=== PATIENT | female | born 1955 | race Caucasian/White ===

== ENCOUNTER 2021-06-29 10:35 | Outpatient (REF) | payer MEDICARE, SELFPAY ==
--- NOTE | ~2021-06-29 | XR_ITS ---
EXAMINATION: XR HAND, LEFT CLINICAL INFORMATION: Cellulitis of left finger. COMPARISON: None TECHNIQUE: PA, lateral, and oblique views of the left hand. FINDINGS: There is no visible acute fracture or dislocation. There is loss of PIP and DIP joint space first through fifth digits with mild flexion deformities of second, fourth and fifth digits. 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 There is mild flexion deformity DIP joints second, fourth and fifth digits.
== END 2021-06-29 10:36 | disposition home or self-care (01) ==
LOC: HO.HMGCX 10:35
PROVIDERS: Visit Provider Internal Medicine
DX: L03.012 Cellulitis of left finger (principal)
CPT/HCPCS: 73130

== ENCOUNTER 2023-12-12 06:42 | Emergency (ER) | payer MEDICARE, SELFPAY ==
[2023-12-12 06:47] VITALS: BP 202/104; PULSE 84; O2SAT 99
[2023-12-12 06:51] VITALS: BMI 19.9
--- NOTE | 2023-12-12 06:57 | ED.GENADULT ---
HPI - General Adult General Chief complaint: Epistaxis Stated complaint: NOSE BLEED/HYPERTENSIVE Time Seen by Provider: 12/12/23 06:53 Source: patient and EMS Mode of arrival: EMS Limitations: no limitations History of Present Illness ED Provider: Marlene Forde PA-C HPI narrative: Patient is a 68 year old assigned female at with a history of HTN presenting to the emergency department today with a nose bleed. Patient states that this morning she blew her nose and her right nostril began to bleed. Patient states that she was bleeding for 45 minutes before she called an ambulance. Patient denies any anti-coagulant use, dizziness, lightheadedness, abdominal pain, nausea, vomiting, fever, chills, blurry vision, double vision, loss of vision, chest pain, difficulty breathing, shortness of breath, back pain, night sweats, pain with urination, increased urinary frequency, increased urinary urgency, blood in her urine or stool, syncope or a near syncopal episode, recent trauma or falls, bowel incontinence, bladder incontinence, or any other complaints at this time. Onset (ago): minute(s) (45) Relieving factors: none Exacerbating factors: none Associated symptoms: denies other symptoms Treatments prior to arrival: none Related Data Home Medications ?Medication ?Instructions ?Recorded ?Confirmed desonide 0.05 % topical ointment 1 appl topical BID-QID PRN Skin 06/29/21 12/12/23 Irritation estradiol 0.01% (0.1 mg/gram) 1 appful vaginal 2XW 06/29/21 12/12/23 vaginal cream acetaminophen 500 mg tablet 500 mg PO Q6H PRN Pain 12/12/23 12/12/23 aluminum-mag hydroxide-simethicone 10 ml PO QID PRN Indigestion 12/12/23 12/12/23 200 mg-200 mg-20 mg/5 mL oral susp bismuth subsalicylate 262 mg/15 mL 524 mg PO QID PRN Indigestion 12/12/23 12/12/23 oral suspension (Pepto-Bismol) clonidine HCl 0.1 mg tablet 0.2 mg PO TID 12/12/23 12/12/23 hydralazine 25 mg tablet 25 mg PO QID 12/12/23 12/12/23 pimecrolimus 1 % topical cream 1 appl topical DAILY 12/12/23 12/12/23 spironolactone 50 mg tablet 50 mg PO DAILY 12/12/23 12/12/23 thyroid (pork) 90 mg tablet 90 mg PO DAILY@0600 12/12/23 12/12/23 (Avery Thyroid) urea 15 gram oral powder packet 15 g PO BID 12/12/23 12/12/23 Allergies Allergy/AdvReac Type Severity Reaction Status Date / Time OTC pain relievers AdvReac Mild stomach Uncoded 12/12/23 06:52 problems Review of Systems Constitutional: Constitutional: Reports no additional constitutional complaints, Denies chills, Denies fever(s) and Denies night sweats Eyes: Eyes: Reports no additional eye complaints, Denies blurry vision, Denies change in vision, Denies diplopia, Denies eye discharge, Denies loss of vision and Denies eye pain ENT: Denies dizziness and Reports epistaxis Cardiovascular: Cardiovascular: Reports no additional cardiovascular complaints, Denies chest pain, Denies lightheadedness, Denies Loss of Consciousness and Denies dyspnea Respiratory: Respiratory: Reports no additional respiratory complaints and Denies dyspnea Gastrointestinal: Gastrointestinal: Reports no additional gastrointestinal complaints, Denies abdominal pain, Denies melena, Denies hematochezia, Denies change in bowel habits and Denies change in stool character Genitourinary: Genitourinary: Denies hematuria, Denies urinary frequency, Denies dysuria, Denies urinary incontinence, Denies urinary hesitancy and Denies urinary urgency Musculoskeletal: Musculoskeletal: Reports no additional musculoskeletal complaints, Denies numbness and Denies tingling Neurologic: Denies dizziness, Denies loss of vision, Denies numbness and Denies tingling Psychiatric: Psychiatric: Reports no additional psychiatric complaints Endocrine: Endocrine: Reports no additional endocrine complaints Hematologic/Lymphatic: Hematologic/Lymphatic: Reports no additional hematologic/lymphatic complaints Allergic/Immunologic: Allergic/Immunologic: Reports no additional allergic/immunologic complaints PMFSH Past Medical History Attestation statement: The following information was validated with the patient. Source: old records reviewed and nursing notes reviewed Social History Social History Advance Directives: Yes Advance Directives Information Provided: Yes Advance Directives on File: No Do you have a plan to hurt others: No Plan Physical Exam ED Vital Signs: Vital Signs - 24 hr 12/12/23 07:00 12/12/23 08:00 12/12/23 10:43 Temperature 98.1 F 99.2 F 99.2 F Pulse Rate 95 71 71 Respiratory Rate 15 15 15 Blood Pressure 214/109 H 166/86 H 166/86 H Pulse Oximetry 97 99 99 Oxygen Delivery Method Room Air Room Air Room Air BMI result Body Mass Index 19.9 Const General: cooperative, no acute distress, alert and awake Nutritional Appearance: well nourished Orientation/consciousness: patient oriented x3 Limitations: no limitations HENMT Head: Yes normal to inspection and Yes atraumatic Ears: hearing grossly normal bilaterally and external ears normal General nose exam: Normal external nose present, no nasal discharge noted and Epistaxis present on the right active bleeding and clots present Face and sinus: Yes normal facial exam, No abrasion and No laceration Mouth: Normal oral and palatal mucosa present, no drooling and no muffled voice Eyes General: appearance normal, both eyes and all related structures Periorbital: periorbital findings normal Eyelids: Yes eyelids normal Conjunctivae: conjunctivae normal Pupils: Equal, round and reactive pupils present EOM: EOMs intact bilaterally Neck Neck: Yes normal visual inspection, Yes full ROM and Yes no lymphadenopathy Chest Chest palpation & inspection: normal inspection of the chest Resp Effort & Inspection: normal respiratory effort and able to speak in complete sentences GI Inspection: Yes normal to inspection Neuro General: patient oriented x3 and moves all extremities Cranial nerves: Yes Equal, round and reactive pupils present Cognition (Neuro): normal cognition Extrem General: Yes normal to inspection, Yes full ROM and Yes capillary refill normal Psych Appearance: grossly normal Mental Status: mental status grossly normal Affect: normal affect Attitude: cooperative Thought process: Normal thought process present Thought content: Normal thought content present Insight: Good insight present (Psych) Medications Administered Discontinued Medications Generic Name Dose Route Start Last Admin Trade Name Stevenq PRN Reason Stop Dose Admin Clonidine HCl 0.2 mg 12/12/23 07:17 12/12/23 07:31 Clonidine Hcl 0.2 Mg Tablet PO 12/12/23 07:18 0.2 mg ONCE ONE Administration Protocol Cocaine HCl 4 ml 12/12/23 07:18 12/12/23 08:39 Cocaine Hcl 4 % 4 Ml Solution TOPICAL 12/12/23 07:19 4 ml ONCE ONE Administration Protocol Hydralazine HCl 25 mg 12/12/23 07:17 12/12/23 07:27 Hydralazine Hcl 25 Mg Tablet PO 12/12/23 07:18 25 mg ONCE ONE Administration Protocol Spironolactone 50 mg 12/12/23 07:17 12/12/23 07:28 Spironolactone 25 Mg Tablet PO 12/12/23 07:18 50 mg ONCE ONE Administration Protocol Tranexamic Acid 500 mg 12/12/23 07:18 12/12/23 08:39 Tranexamic Acid 1,000 Mg/10 Ml Vial INTRANASAL 12/12/23 07:19 500 mg ONCE ONE Administration Procedures Epistaxis Control Time Out Performed: Yes Nostril: Yes right Nose prepped with: Yes cocaine 4% Direct inspection: Yes unable to visualize Direct inspection method: Yes nasal rhinoscope Clots removed by: Yes suction Epistaxis treatment: Yes TXA soaked gauze Results of treatment: Yes bleeding controlled and Yes treatment well tolerated Complications: Yes none Medical Decision Making Medical Decision Making MDM Narrative: Patient is a 68 year old assigned female at with a history of HTN presenting to the emergency department today with a nose bleed. Patient's physical exam was as noted in the physical exam portion of this note. I explained my physical exam findings to the patient. I answered all questions asked by the patient. Patient was given her normal morning HTN medications. Patient's epistaxis was addressed, as noted in the procedure note. Upon re-evaluation, patient's bleeding had resolved. Patient was examined by my attending physician, Dr. Osorio, who confirmed cessation of bleeding. Patient was monitored for an hour post cessation of bleeding and did not bleed. I stressed the importance of the patient taking her medication as directed (either prescribed or as the over the counter packaging recommends). I stressed the importance of the patient following up with her primary care provider and an ENT. I stressed the importance of the patient returning to the emergency department immediately if her symptoms were to worsen or if she were to develop any dizziness, shortness of breath, difficulty breathing, chest pain, blurry vision, loss of vision, nausea, vomiting, abdominal pain, fever, chills, back pain, or any other complaints. Patient verbalized agreement and understanding with this treatment plan and discharge. Differential Diagnosis Differential Diagnoses: The differential diagnosis associated with the presentation includes Epistaxis Hypertension Admission/Observation Consideration of admission/observation: Escalation of care including admission/observation considered Patient would have been admitted to the hospital had her clinical presentation warranted hospital admission. Independent Historian Clinical information obtained from an independent historian. History obtained from or confirmed by: EMS (EMS provided additional history and confirmed the history provided by the patient.) Discharge Plan Discharge Clinical Impression: Epistaxis, Hypertension Patient Disposition: Home, Self-Care Instructions: Nosebleed (ED), Hypertension (ED) Additional Instructions: Follow up with your primary care provider. Return to the emergency department immediately if your symptoms worsen or if you develop any dizziness, shortness of breath, difficulty breathing, chest pain, blurry vision, loss of vision, nausea, vomiting, abdominal pain, fever, chills, back pain, or any other complaints. Prescriptions: No Action clonidine HCl 0.1 mg tablet 0.2 mg PO TID pimecrolimus 1 % Cream 1 appl TOPICAL DAILY hydralazine 25 mg tablet 25 mg PO QID spironolactone 50 mg tablet 50 mg PO DAILY thyroid (pork) [Avery Thyroid] 90 mg Tablet 90 mg PO DAILY@0600 urea 15 gram Powder In Packet 15 g PO BID acetaminophen 500 mg Tablet 500 mg PO Q6H PRN (Reason: Pain) bismuth subsalicylate [Pepto-Bismol] 262 mg/15 mL Suspension 524 mg PO QID PRN (Reason: Indigestion) alum-mag hydroxide-simeth [Mylanta] 200-200-20 mg/5 mL Suspension 10 ml PO QID PRN (Reason: Indigestion) Rx Instructions: administer between meals and at bedtime estradiol 0.01 % (0.1 mg/gram) cream 1 appful vaginal 2XW desonide 0.05 % ointment 1 appl topical BID-QID PRN (Reason: Skin Irritation) Referrals: Tae Negron MD [Primary Care Provider] - Austin Mccarty [Physician] - (Call to establish and follow up with an ENT specialist. ) Interventions: ED Discharge Assessment Last Done: 12/12/23 10:43 Discharge Date/Time: 12/12/23 10:44 Print Language: Citizen Of [place]
[2023-12-12 07:00] VITALS: BP 214/109; PULSE 95; RESP 15; TEMP 36.7; O2SAT 97
[2023-12-12] MEDS: hydrALAZINE HCl 25 MG TABLET PO (07:27)
[2023-12-12] MEDS: Spironolactone 25 MG TABLET 50 MG PO (07:28)
[2023-12-12] MEDS: cloNIDine HCL 0.2 MG TABLET PO (07:31)
--- NOTE | 2023-12-12 07:37 | PC.NURSE ---
patient continues with epistaxis, medicated per the MAR for hypertension per patient's adamant request.
[2023-12-12 08:00] VITALS: BP 166/86; PULSE 71; RESP 15; TEMP 37.3; O2SAT 99
--- NOTE | 2023-12-12 08:28 | PC.NURSE ---
provider at bedside medicating patient
[2023-12-12] MEDS: Cocaine HCl 4 % 4 ML SOLUTION TOPICAL (08:39)
[2023-12-12] MEDS: Tranexamic Acid 1,000 MG/10 ML VIAL 500 MG INTRANASAL (08:39)
[2023-12-12 10:43] VITALS: BP 166/86; PULSE 71; RESP 15; TEMP 37.3; O2SAT 99
--- NOTE | 2023-12-12 12:22 | PHA.MEDREC ---
Pharmacy Consult ? Medication Reconciliation Pharmacy has completed the medication reconciliation. Utilized list from facility, however on list it just says eye drops daily under non-prescriptions medications.
== END 2023-12-12 10:44 | disposition home or self-care (01) ==
PROVIDERS: Emergency Provider Emergency Medicine Emergency Medical Services; PCP Family Medicine
DX: R04.0 Epistaxis (principal)
CPT/HCPCS: 30901; 99284; C9143